=== PATIENT | female | born 1985 | race Caucasian/White ===

== ENCOUNTER 2016-10-25 18:37 | Outpatient (CLI) | payer MEDICAID ==
[~2016-10-25] VITALS: Ht 152.4 cm; Wt 60.8 kg
[~2016-10-25 18:37] MED LIST: PREN-46 PO
[2016-10-25 19:11] VITALS: Ht 152.4 cm; Wt 60.8 kg
[2016-10-25 19:13] VITALS: BP 111/62; PULSE 121; RESP 18
[2016-10-25 20:23] LABS: ADD UMIC YES; URINE BILIRUBIN (Dip) NEGATIVE (NEGATIVE); URINE BLOOD (Dip) NEGATIVE (NEGATIVE); URINE COLOR LT. YELLOW (YELLOW); URINE GLUCOSE (Dip) NEGATIVE (NEGATIVE); URINE KETONES (Dip) NEGATIVE (NEGATIVE); URINE LEUKOCYTE ESTERASE (Dip) TRACE (NEGATIVE); URINE NITRITE (Dip) NEGATIVE (NEGATIVE); URINE TOTAL PROTEIN (Dip) NEGATIVE (NEGATIVE); URINE UROBILINOGEN (Dip) 0.2 E.U./dL (0.1-1.0)
--- NOTE | 2016-10-25 20:32 | RADRPT ---
PROCEDURE: US OB biophysical profile. CLINICAL INDICATION: CONTRACTIONS TECHNIQUE: Multiple sonographic images of the pelvis were obtained. The images were reviewed on a PACS workstation. COMPARISON: 06/29/2016 FINDINGS: There is a single viable intrauterine gestation. There is a normal amount of amniotic fluid with an ULISES = 7.19 cm cm. Cardiac activity is present with 150 beats per minute. There is a vertex presentation. The placenta is fundal grade III. Biophysical profile: movement 2/2 tone 2/2. breathing 2/2 ULISES 2/2 Total 04/10 IMPRESSION: Normal biophysical profile for single live intrauterine gestation . RPTAT:AAJJ Physician Crystal Date Time Electronically viewed and signed by Physician Crystal on 10/25/2016 20:31 ROSALBA/
[2016-10-25 20:39] LABS: BACTERIA,URINE FEW; URINE RBCS NONE SEEN /HPF (0)
[2016-10-25 21:01] LABS: BASOPHILS % 0.1 % (0.0-2.0); EOSINOPHILS % 0.2 % (0.0-7.0); HEMATOCRIT 34.1 % (37.0-47.0); HEMOGLOBIN 11.1 g/dl (12.0-16.0); LYMPHOCYTES # 0.9 10^3/ul (0.8-2.9); LYMPHOCYTES % 7.7 % (15.0-51.0); MEAN CORPUSCULAR HEMOGLOBIN 27.9 pg (29.0-33.0); MEAN CORPUSCULAR HGB CONC 32.5 g/dl (32.0-37.0); MEAN CORPUSCULAR VOLUME 85.8 fl (82.0-101.0); MEAN PLATELET VOLUME 10.2 fl (7.4-10.4); MONOCYTES % 8.3 % (0.0-11.0); NEUTROPHIL # 9.7 10^3/ul (1.6-7.5); NEUTROPHILS % 83.7 % (39.0-77.0); PLATELET COUNT 267 10^3/UL (140-440); RED BLOOD COUNT 3.98 10^6/ul (4.20-5.40); RED CELL DISTRIBUTION WIDTH 14.2 % (11.5-14.5); UNCORRECTED WBC 11.6 10^3/ul (4.8-10.8); WHITE BLOOD COUNT 11.6 10^3/ul (4.8-10.8)
[2016-10-25 21:03] LABS: CONDITION 1
== END 2016-10-25 22:10 | disposition home or self-care (01) ==
LOC: OBT 18:37 → L-D 18:37 → OBT 22:10
PROVIDERS: ATTEND Obstetrics & Gynecology
DX: O47.1 False labor at or after 37 completed weeks of gestation (principal); Z3A.37 37 weeks gestation of pregnancy
CPT/HCPCS: 76818; 81001; 85025; Z7500; 81003; G0463

== ENCOUNTER 2016-10-31 11:11 | Inpatient (IN) | payer MEDICAID ==
[~2016-10-31] VITALS: Ht 162.6 cm; Wt 86.4 kg
[2016-10-31] MEDS ORDERED: LACTATED RINGER'S 1,000 ML IV SCH (11:23)
[2016-10-31] MEDS ORDERED: MISOPROSTOL 200 MCG TAB PR PRN ×2 (11:30→20:00)
[2016-10-31] MEDS ORDERED: CEFAZOLIN 2 GM/50 ML (PMX) 50 ML IVPB SCH (11:30)
[2016-10-31] MEDS ORDERED: METHYLERGONOVINE 0.2 MG INJ IM PRN ×2 (11:30→20:00)
[2016-10-31] MEDS ORDERED: OXYTOCIN 30 UNITS/LR 500 ML IV PRN ×2 (11:30→20:00)
[2016-10-31] MEDS ORDERED: OXYTOCIN 30 UNITS/LR 500 ML IV SCH (11:30)
[2016-10-31] MEDS ORDERED: CARBOPROST 250 MCG INJ IM PRN ×2 (11:30→20:00)
[2016-10-31 11:56] VITALS: Ht 162.6 cm; Wt 86.4 kg
[2016-10-31 11:56] LABS: ADD SCAN DIFF NO
[2016-10-31 12:04] VITALS: BP 120/74; PULSE 64; RESP 18
[2016-10-31 12:15] LABS: BASOPHILS % 0.3 % (0.0-2.0); EOSINOPHILS % 0.1 % (0.0-7.0); HEMATOCRIT 35.1 % (37.0-47.0); HEMOGLOBIN 11.3 g/dl (12.0-16.0); LYMPHOCYTES # 2.1 10^3/ul (0.8-2.9); MEAN CORPUSCULAR HEMOGLOBIN 27.4 pg (29.0-33.0); MEAN CORPUSCULAR HGB CONC 32.2 g/dl (32.0-37.0); MEAN PLATELET VOLUME 11.6 fl (7.4-10.4); MONOCYTE # 0.7 10^3/ul (0.3-0.9); MONOCYTES % 6.6 % (0.0-11.0); NEUTROPHIL # 7.4 10^3/ul (1.6-7.5); PLATELET COUNT 301 10^3/UL (140-415); RED BLOOD COUNT 4.13 10^6/ul (4.20-5.40); RED CELL DISTRIBUTION WIDTH 13.6 % (11.5-14.5); WHITE BLOOD COUNT 10.3 10^3/ul (4.8-10.8)
[2016-10-31 12:24] LABS: INR 0.91; PROTIME 12.2 Sec (12.2-14.2)
[2016-10-31 12:25] LABS: PARTIAL THROMBOPLASTIN TIME 27.1 Sec (25.0-35.0)
[2016-10-31] MEDS ORDERED: LACTATED RINGER'S 1,000 ML IV ONE (13:02)
[2016-10-31] MEDS ORDERED: CITRIC ACID/NA CITRATE 30 ML CUP PO ONE (13:30)
[2016-10-31] MEDS ORDERED: ONDANSETRON 4 MG INJ IV ONE (13:30)
[2016-10-31] MEDS ORDERED: FENTAnyl 50 MCG/ML VIAL ONE (14:06)
[2016-10-31] MEDS ORDERED: METOCLOPRAMIDE 10 MG INJ ONE (14:17)
[2016-10-31] MEDS ORDERED: ONDANSETRON 4 MG INJ IV PRN ×2 (15:00→17:30)
[2016-10-31] MEDS ORDERED: HYDROmorphONE 1 MG/ML SYG IV PRN ×4 (15:00→17:30)
[2016-10-31] MEDS ORDERED: DIPHENHYDRAMINE 50 MG INJ IV PRN ×2 (15:00→17:30)
[2016-10-31] MEDS ORDERED: NALOXONE (0.4 MG/ML) INJ IV PRN ×2 (15:00→17:30)
[2016-10-31] MEDS ORDERED: PROCHLORPERAZINE 10 MG INJ IV PRN (15:00)
[2016-10-31] MEDS ORDERED: KETOROLAC 30 MG INJ ONE (15:09)
--- NOTE | 2016-10-31 15:24 | HP ---
Date/Time of Note Date/Time of Note DATE: 10/31/16 TIME: 15:22 OB - History Hx of Present Free Text/Dictation admitted for repeat C/S and sterilization Last Menstrual Period: Feb 06, 2016 Estimated Due Date: Oct 10, 2016 : 3 Para: 2 Care: Good Care Ultrasounds: Normal mid trimester US Obstetrical Complications: None Medical Complications: Other (previous C/S X 2) Past Family/Social History * Past Medical, Surgical, Family and Obstetric Histories reviewed from chart. Blood Type: O+ Rubella: immune RPR/VDRL: Negative GBS Status: Negative HBsAG: Negative OB Admission Exam Vital Signs Vital Signs Vital Signs Date Time Temp Pulse Resp B/P Pulse Ox O2 Delivery O2 Flow Rate FiO2 10/31/16 12:04 98.2 64 18 120/74 Room Air Physical Exam HEENT: WNL Heart: Rhythm Normal Lungs: Clear, Equal Abdomen: WNL Extremities: Normal Reflexes: Normal Cervical Dilatation: None Effacement: 0% Station: -3 Membranes: Intact Heart Rate: 130's Accelerations: Accelerations Present Decelerations: No Decelerations Varibility: Marked Contractions on Admission: None Last 72 hours Lab Results CBC & BMP 10/31/16 11:45 OB Assessment/Plan Reason for admission: section Other Assessment: term gestation previous C/S X 2 desires sterilization Other plan: repeat C/S + BTL ARIA GILES MD Oct 31, 2016 15:24
--- NOTE | 2016-10-31 15:26 | OPR ---
Operative Report Planned Procedure Procedure date Oct 31, 2016 Procedure(s) repeat C/S + BTL Performed by: ARIA GILES MD Assisting provider: ESPERANZA ABDI MD Anesthesiologist: CRISTHIAN BECKWITH MD Pre-procedure diagnosis term gestation previous C/S X 2 desires sterilization Anesthesia Type: spinal Procedure Description Under satisfactory anaesthesia a Pfannenstiel incision was made two fingerbreadth above and parallel to the symphysis of pubis around the previous scar and previous scar was removed Incision was extended laterally to the border of the Recti muscles on either sides. Incision was carried down with sharp and blunt dissection until fascia was reached. Anterior Recti muscle fascia was incised in mid portion and incision extended laterally to the border of skin incision. Fascia was mobilized from muscle superiorly and Recti muscles were from midline using sharp and blunt dissection. Peritoneum was visualized; Avoiding bowel and bladder it was incised . Incision was extended superiorly and inferiorly. Bladder blade was placed. Posterior peritoneum covering the lower segment of the uterus and lower segment of the uterus were incised.Low transverse uterine incision was made on lower segment of the uterus. Incision extended laterally to the border of Round Lig. on either sides and baby was delivered from OT. position . Amniotic fluid appeared clear. Cord blood was obtained and cord had 3 vessels . Placenta was delivered spontaneously and appeared intact and complete. Intrauterine cavity was rubbed with a laparotomy sponge. Uterine incision was closed in 2 layers using running stitches of No1 Monocryl. Hemostasis appeared secure. Ovaries and Fallopian tubes were within normal limits. Bilateral Tubal Ligation was performed by following procedure: R fallopian tube was raised in mid portion; a Yolie clamp was placed below the fimbriae extending to proximal portion of the fallopian tube. Another clamp was placed parallel to the first and after incising the fallopian tube the stump was sutured using 0 Vicryl stitch. Hemostasis was secure . Same procedure was done on fallopian tube on the opposite side. Hemostasis appeared to be secure on ligated sites of either fallopian tubes. Announcing needle, lap sponge and instrument count to be correct abdomen was closed in layers as follows: Peritoneum and Recti muscles with running stitches of 20 Vicryl. Fascia with running stitch of No 1 PDS. Subcutaneous tissue with running stitches of 20 Chromic and skin was closed using cassandra. Patient tolerated the procedure well and was transferred to [facility] in good condition. Post-Procedure Post-procedure diagnosis S/P C/S + BTL Findings: Live Baby normal R and L fallopian tubes . Specimen removed: Yes Specimen description segments of R and L fallopian tubes Complications: None Pt Condition post procedure: stable Disposition: PACU Physician Certification I, the undersigned physician, hereby certify that I have discussed the procedure described in this consent form with this patient (or the patient's legal resources representative), including: * The risk and benefits of the procedure; * Any adverse reactions that may reasonably be expected to occur; * Any alternative efficacious methods of treatment which may be medically viable ; * The potential problems that may occur during recuperation; * Potential for blood transfusion and associated risks/benefits; and * Any research or economic interest I may have regarding this treatment. I further certify that the patient/legally responsible person was encouraged to ask question and that all questions were answered. ARIA GILES MD Oct 31, 2016 15:26
[2016-10-31] MEDS ORDERED: HYDROmorphONE 0.2 MG/ML PCA IV SCH (17:30)
[2016-10-31] MEDS ORDERED: KETOROLAC 30 MG INJ IV PRN ×2 (17:30)
[2016-10-31] MEDS ORDERED: TRIMETHOBENZAMIDE 100 MG/ML VIAL IM PRN (17:30)
[2016-10-31] MEDS ORDERED: OXYCODONE/ACETAMINOPHEN (5/325) TAB PO PRN ×2 (17:30)
[2016-10-31] MEDS: KETOROLAC 30 MG INJ IV PRN ×2 (17:43→23:49)
[2016-10-31] MEDS ORDERED: HYDROmorphONE (0.2 MG/ML) 10ML SYG IV PRN ×2 (19:30)
[2016-10-31] MEDS ORDERED: FENTAnyl 50 MCG/ML VIAL IV PRN (19:30)
[2016-10-31] MEDS ORDERED: LANOLIN 7 GM TUBE TOP PRN (20:00)
[2016-10-31] MEDS ORDERED: ACETAMINOPHEN/CODEINE #3 TAB PO PRN (20:00)
[2016-10-31] MEDS ORDERED: NA PHOSPHATE/BIPHOS 133 ML ENEMA PR PRN (20:00)
[2016-10-31 20:25] VITALS: BP 127/66; PULSE 76; RESP 18
[2016-10-31] MEDS ORDERED: NAPROXEN 250 MG TAB PO SCH (21:00)
[2016-10-31] MEDS: SENNA/DOCUSATE NA (8.6MG/50MG) TAB PO SCH (21:00)
[2016-10-31] MEDS: LACTATED RINGER'S 1,000 ML IV SCH (21:13)
[2016-10-31] MEDS: CEFAZOLIN 2 GM/50 ML (PMX) 50 ML IV SCH (21:13)
[2016-10-31] MEDS: IBUPROFEN 800 MG TAB PO SCH (22:00)
[2016-10-31 23:49] VITALS: BP 120/69; PULSE 132; RESP 18
[2016-10-31] MEDS: CLINDAMYCIN 300 MG CAP PO SCH (23:49)
[2016-11-01 04:05] VITALS: BP 106/67; PULSE 74; RESP 18
[2016-11-01] MEDS: CEFAZOLIN 2 GM/50 ML (PMX) 50 ML IV SCH ×2 (04:49→11:27)
[2016-11-01] MEDS: LACTATED RINGER'S 1,000 ML IV SCH ×3 (05:07→19:44)
[2016-11-01] MEDS: CLINDAMYCIN 300 MG CAP PO SCH ×3 (05:30→17:43)
[2016-11-01] MEDS: KETOROLAC 30 MG INJ IV PRN ×2 (05:30→11:27)
[2016-11-01] MEDS: IBUPROFEN 800 MG TAB PO SCH ×3 (06:00→21:35)
[2016-11-01 07:56] LABS: ADD SCAN DIFF NO
[2016-11-01 08:00] VITALS: BP 115/67; PULSE 74; RESP 19
[2016-11-01 08:02] LABS: BASOPHILS % 0.2 % (0.0-2.0); EOSINOPHILS % 0.1 % (0.0-7.0); HEMATOCRIT 32.9 % (37.0-47.0); HEMOGLOBIN 10.8 g/dl (12.0-16.0); LYMPHOCYTES # 1.5 10^3/ul (0.8-2.9); LYMPHOCYTES % 12.6 % (15.0-51.0); MEAN CORPUSCULAR HEMOGLOBIN 27.8 pg (29.0-33.0); MEAN CORPUSCULAR HGB CONC 32.8 g/dl (32.0-37.0); MEAN CORPUSCULAR VOLUME 84.6 fl (82.0-101.0); MEAN PLATELET VOLUME 11.4 fl (7.4-10.4); MONOCYTE # 0.7 10^3/ul (0.3-0.9); NEUTROPHIL # 9.6 10^3/ul (1.6-7.5); NEUTROPHILS % 80.4 % (39.0-77.0); PLATELET COUNT 291 10^3/UL (140-415); RED BLOOD COUNT 3.89 10^6/ul (4.20-5.40); RED CELL DISTRIBUTION WIDTH 13.6 % (11.5-14.5); WHITE BLOOD COUNT 11.9 10^3/ul (4.8-10.8)
[2016-11-01] MEDS: SENNA/DOCUSATE NA (8.6MG/50MG) TAB PO SCH ×2 (09:44→21:35)
[2016-11-01] MEDS ORDERED: BISACODYL 10 MG SUPP PR ONE (10:00)
[2016-11-01 11:27] VITALS: BP 113/62; PULSE 73; RESP 18
--- NOTE | 2016-11-01 14:35 | PN ---
Date/Time of Note Date/Time of Note DATE: 11/01/16 TIME: 14:35 Assessment/Plan Lines/Catheters IV Catheter Type (from Nrsg): Peripheral IV Subjective 24 Hr Interval Summary No BM passing flatus Constitutional: BM, ambulates, flatus, improved, no complaints, urine output Pain Control: well controlled Exam/Review of Systems Vital Signs Vitals Vital Signs Date Time Temp Pulse Resp B/P Pulse Ox O2 Delivery O2 Flow Rate FiO2 11/01/16 11:27 98.0 73 18 113/62 Room Air Intake and Output 10/31/16 10/31/16 11/01/16 15:00 23:00 07:00 Intake Total 1075 ml 500 ml 1050 ml Output Total 900 ml 550 ml 1600 ml Balance 175 ml -50 ml -550 ml Exam Free Text/Dictation Abdomen: soft BS + Incision: covered Constitutional: alert, oriented, well developed Psych: nl mood/affect, no complaints Head: atraumatic, normocephalic Eyes: EOMI, nl conjunctiva, nl lids, nl sclera ENMT: mucosa pink and moist, nl external ears & nose, nl lips & teeth, nl nasal mucosa & septum Neck: non-tender, supple Respiratory: clear to auscultation, normal air movement Cardiovascular: nl pulses, regular rate and rhythm Gastrointestinal: nl liver, spleen, non-tender, soft Musculoskeletal: nl extremities to inspection, nl gait and stance Extremities: normal pulses Neurological: KETTLE COOK II-XII intact, nl mental status, nl speech, nl strength Skin: nl turgor, rash or lesions Lymph: nl lymph nodes Results Result Diagram: 11/01/16 0721 ARIA GILES MD Nov 01, 2016 14:35
--- NOTE | 2016-11-01 14:36 | PN ---
Date/Time of Note Date/Time of Note DATE: 11/01/16 TIME: 14:36 Assessment/Plan VTE Prophylaxis VTE Prophylaxis Intervention: ambulation Lines/Catheters IV Catheter Type (from Nrs): Peripheral IV Assessment/Plan Assessment/Plan will advance diet and ambulate Exam/Review of Systems Vital Signs Vitals Vital Signs Date Time Temp Pulse Resp B/P Pulse Ox O2 Delivery O2 Flow Rate FiO2 11/01/16 11:27 98.0 73 18 113/62 Room Air Intake and Output 10/31/16 10/31/16 11/01/16 15:00 23:00 07:00 Intake Total 1075 ml 500 ml 1050 ml Output Total 900 ml 550 ml 1600 ml Balance 175 ml -50 ml -550 ml Results Result Diagram: 11/01/16 0721 ARIA GILES MD Nov 01, 2016 14:36
[2016-11-01 16:35] VITALS: BP 108/64; PULSE 86; RESP 18
[2016-11-01] MEDS: OXYCODONE/ACETAMINOPHEN (5/325) TAB PO PRN (16:35)
[2016-11-01 20:10] VITALS: BP 110/66; PULSE 78; RESP 18
[2016-11-02] MEDS: CLINDAMYCIN 300 MG CAP PO SCH ×4 (00:26→17:35)
[2016-11-02 04:00] VITALS: BP 108/76; PULSE 64; RESP 18
[2016-11-02] MEDS: IBUPROFEN 800 MG TAB PO SCH ×3 (05:36→21:59)
[2016-11-02 08:30] VITALS: BP 118/78; PULSE 76; RESP 19
[2016-11-02] MEDS: SENNA/DOCUSATE NA (8.6MG/50MG) TAB PO SCH ×2 (09:37→20:55)
[2016-11-02 09:50] LABS: ADD SCAN DIFF NO
[2016-11-02 09:58] LABS: BASOPHILS % 0.2 % (0.0-2.0); EOSINOPHILS % 0.3 % (0.0-7.0); HEMATOCRIT 33.9 % (37.0-47.0); HEMOGLOBIN 10.8 g/dl (12.0-16.0); LYMPHOCYTES # 1.5 10^3/ul (0.8-2.9); LYMPHOCYTES % 10.1 % (15.0-51.0); MEAN CORPUSCULAR HEMOGLOBIN 27.3 pg (29.0-33.0); MEAN CORPUSCULAR HGB CONC 31.9 g/dl (32.0-37.0); MEAN CORPUSCULAR VOLUME 85.8 fl (82.0-101.0); MEAN PLATELET VOLUME 11.4 fl (7.4-10.4); MONOCYTE # 0.8 10^3/ul (0.3-0.9); MONOCYTES % 5.2 % (0.0-11.0); NEUTROPHIL # 12.7 10^3/ul (1.6-7.5); NEUTROPHILS % 83.2 % (39.0-77.0); PLATELET COUNT 352 10^3/UL (140-415); RED BLOOD COUNT 3.95 10^6/ul (4.20-5.40); RED CELL DISTRIBUTION WIDTH 14.1 % (11.5-14.5); WHITE BLOOD COUNT 15.2 10^3/ul (4.8-10.8)
[2016-11-02] MEDS: OXYCODONE/ACETAMINOPHEN (5/325) TAB PO PRN ×2 (11:48→19:34)
[2016-11-02 15:51] VITALS: BP 124/66; PULSE 85; RESP 19
--- NOTE | 2016-11-02 17:54 | DS ---
Date/Time of Note Date/Time of Note home next day DATE: 11/02/16 TIME: 17:49 Obstetrical Discharge Record Final Diagnosis Final Diagnosis: Term delivered Other Final Diagnosis S/P C/S + BTL Vaginal Delivery Obstetrical Delivery: Bilateral Tubal Ligation Section Section: Repeat Condition on Discharge Physical Assessment Last Vitals: see nurses notes Voiding: Yes Bowel Movement: Yes Breast: Soft, non-tender, Filling Fundus: Firm Abdomen and Incision: soft bs + Incision: healing Episiotomy: NA Calf Tenderness: No Patient Condition: Good ARIA GILES MD Nov 02, 2016 17:54
--- NOTE | 2016-11-02 17:56 | DS ---
Date/Time of Note Date/Time of Note DATE: 11/02/16 TIME: 17:54 Discharge Summary Admission/Discharge Info Admit Date/Time Oct 31, 2016 at 11:11 Discharge Date/Time 11/03/2016 Final Diagnosis S/P C/S + BTL Patient Condition: Good Procedures repeat C/S + BTL Hx of Present Illness 31 y/o female had repeat C/S + BTL Hospital Course uncomplicated Home Meds Reported Medications Vit #108/Iron/Fa ( ONE TABLET) 1 Each Tablet, 1 EACH PO DAILY 08/12/13 Follow-up Plan 3 days in clinic for staple removal Pending Labs Laboratory Tests Test 11/02/16 09:20 Basophils # 0.010^3/ul (0.0-0.1) Basophils % 0.2% (0.0-2.0) Eosinophils # 0.010^3/ul (0.0-0.5) Eosinophils % 0.3% (0.0-7.0) Hematocrit 33.9% (37.0-47.0) Hemoglobin 10.8g/dl (12.0-16.0) Lymphocytes # 1.510^3/ul (0.8-2.9) Lymphocytes % 10.1% (15.0-51.0) Mean Corpuscular Hemoglobin 27.3pg (29.0-33.0) Mean Corpuscular Hemoglobin Concent 31.9g/dl (32.0-37.0) Mean Corpuscular Volume 85.8fl (82.0-101.0) Mean Platelet Volume 11.4fl (7.4-10.4) Monocytes # 0.810^3/ul (0.3-0.9) Monocytes % 5.2% (0.0-11.0) Neutrophils # 12.710^3/ul (1.6-7.5) Neutrophils % 83.2% (39.0-77.0) Nucleated Red Blood Cells # 0.010^3/ul (0.0-0.0) Nucleated Red Blood Cells % 0.0/100WBC (0.0-0.0) Platelet Count 68517^3/UL (140-415) Red Blood Count 3.9510^6/ul (4.20-5.40) Red Cell Distribution Width 14.1% (11.5-14.5) White Blood Count 15.210^3/ul (4.8-10.8) ARIA GILES MD Nov 02, 2016 17:56
--- NOTE | 2016-11-02 17:57 | PD.PPDC ---
[employer] Discharge Instruction Provider Information Physician Information 31 y/o female had repeat C/S + BTL Diagnosis Final Diagnosis: S/P C/S + BTL Condition Patient Condition: Good Diet Diet: Resume Regular Diet Activity/Restrictions Activity: January Shower Restrictions: No Exercising No Lifting Nothing in the Vagina Return to Work or School: January 01, 2017 Follow-up Follow-up with Physician: 3, Day/Days (in clinic for staple removal ) Return to clinic for [employer]WORK[employer] Instructions: Fever greater than 101 Chills OB Instructions: Breast Tenderness Depression Surgical Instructions: Incisional Drainage Incisional Redness ARIA GILES MD Nov 02, 2016 17:57
[2016-11-02] MEDS ORDERED: Oxycodone/Acetamin (5/325) PO (17:58)
[2016-11-02] MEDS ORDERED: IBUP800T25 PO (17:58)
[2016-11-02 19:45] VITALS: BP 132/71; PULSE 83; RESP 18
[2016-11-03] MEDS: CLINDAMYCIN 300 MG CAP PO SCH ×4 (00:06→18:00)
[2016-11-03 04:00] VITALS: BP 107/58; PULSE 67; RESP 19
[2016-11-03] MEDS: IBUPROFEN 800 MG TAB PO SCH ×2 (05:33→13:16)
[2016-11-03 08:00] VITALS: BP 119/74; PULSE 77; RESP 19
[2016-11-03] MEDS ORDERED: DIPHTH/TET/ACEL PERTUSS (ADULT) 0.5 ML VIAL IM* ONE (09:00)
[2016-11-03] MEDS ORDERED: MEASLES,MUMPS,RUBELLA VACCINE INJ SC* ONE (09:00)
[2016-11-03] MEDS: SENNA/DOCUSATE NA (8.6MG/50MG) TAB PO SCH (09:42)
[2016-11-03 09:46] LABS: ADD SCAN DIFF NO
[2016-11-03 09:49] LABS: BASOPHILS % 0.2 % (0.0-2.0); EOSINOPHILS # 0.1 10^3/ul (0.0-0.5); HEMATOCRIT 33.4 % (37.0-47.0); HEMOGLOBIN 10.8 g/dl (12.0-16.0); LYMPHOCYTES # 1.6 10^3/ul (0.8-2.9); LYMPHOCYTES % 12.3 % (15.0-51.0); MEAN CORPUSCULAR HEMOGLOBIN 27.8 pg (29.0-33.0); MEAN CORPUSCULAR HGB CONC 32.3 g/dl (32.0-37.0); MEAN CORPUSCULAR VOLUME 85.9 fl (82.0-101.0); MEAN PLATELET VOLUME 11.3 fl (7.4-10.4); MONOCYTE # 0.8 10^3/ul (0.3-0.9); MONOCYTES % 5.9 % (0.0-11.0); NEUTROPHIL # 10.5 10^3/ul (1.6-7.5); NEUTROPHILS % 79.5 % (39.0-77.0); PLATELET COUNT 385 10^3/UL (140-415); RED BLOOD COUNT 3.89 10^6/ul (4.20-5.40); RED CELL DISTRIBUTION WIDTH 14.2 % (11.5-14.5); WHITE BLOOD COUNT 13.2 10^3/ul (4.8-10.8)
[2016-11-03 16:00] VITALS: BP 137/80; RESP 19
== END 2016-11-03 18:10 | disposition home or self-care (01) | DRG 766 ==
LOC: L-D 11:11 → PP1 20:25
PROVIDERS: ADMIT Obstetrics & Gynecology; ATTEND Obstetrics & Gynecology
PROC: 0UB70ZZ Excision of Bilateral Fallopian Tubes, Open Approach (ICD-10-PCS; 2016-10-31)
PROC: 10D00Z1 Extraction of Products of Conception, Low, Open Approach (ICD-10-PCS; principal; 2016-10-31 14:00)
DX: O34.211 Maternal care for low transverse scar from previous cesarean delivery (principal); Z30.2 Encounter for sterilization; Z3A.00 Weeks of gestation of pregnancy not specified; Z37.0 Single live birth
CPT/HCPCS: 85025; 85610; 85730; 86592; 86850; 86900; 86901; 88302; 90715; 99464; J0690; J1170; J1885; J2405; J2590; J2765; J3010; J7120